=== PATIENT | male | born 1945 | race Caucasian/White ===

== ENCOUNTER 2016-10-27 16:00 | Emergency (ER) | payer OTHER ==
[~2016-10-27] VITALS: Ht 188 cm; Wt 100.0 kg
[2016-10-27 16:02] VITALS: BP 169/85; PULSE 65; RESP 17; TEMP 97.6; O2SAT 98
[2016-10-27 16:52] LABS: BLOOD, URINE NEG (NEG); CALCIUM OXALATE CRYSTALS,URINE FEW /hpf; COMMENT (UR) CULT NOT INDICATED; CULTURE IF INDICATED CULT NOT INDICATED; GLUCOSE,URINE NEG (NEG); KETONE, URINE TRACE mg/dL (NEG); MUCUS URINE FEW /lpf (OCC); NITRITE,URINE NEG (NEG); PH, URINE 5.5 (5.0-8.5); URINE COLOR DARK-YELLOW (YELLW/STRAW)
--- NOTE | 2016-10-27 18:21 | PD ---
HPI Chief Complaint: Complaint Time Seen by Provider: 18:19 Travel History International Travel<30 days: No Contact w/Intl Traveler<30days: No Traveled to known affect area: No History of Present Illness HPI 70-year-old male with no significant medical history presents to the emergency department for evaluation right flank pain radiating into his testicles. Patient states he feels as though his testicles are tighter than usual. He has had kidney stones in the past and states this feeling is similar. Intermittent sharp, and difficult to get comfortable. He said his urine was slow to flow this morning, but he has had normal voids throughout the day. No fever or chills. No chest tightness. No nausea or vomiting. No Other symptoms to report. [facility] Past Medical History Medical History: Denies Significant Hx Social History Alcohol Use: No Tobacco Use: No Substance Use: No Allergies-Medications (Allergen,Severity, Reaction): Coded Allergies: codeine (Verified Allergy, Intermediate, RASH, 10/27/16) Reported Meds & Prescriptions Reported Meds & Active Scripts Active No Active Prescriptions or Reported Medications Review of Systems Except as stated in HPI: all other systems reviewed are Neg Physical Exam Narrative GENERAL: Well-nourished male patient, lying in position on the bed, in no acute distress. SKIN: Focused skin assessment warm/dry. HEAD: Atraumatic. Normocephalic. EYES: Pupils equal and round. No scleral icterus. No injection or drainage. ENT: No nasal bleeding or discharge. Mucous membranes pink and moist. NECK: Trachea midline. No JVD. CARDIOVASCULAR: Regular rate and rhythm. No murmur appreciated. RESPIRATORY: No accessory muscle use. Clear to auscultation. Breath sounds equal bilaterally. GASTROINTESTINAL: Abdomen soft, non-tender, nondistended. Hepatic and splenic margins not palpable. MUSCULOSKELETAL: No obvious deformities. No clubbing. No cyanosis. No edema. Right CVA tenderness. NEUROLOGICAL: Awake and alert. No obvious cranial nerve deficits. Motor grossly within normal limits. Normal speech. PSYCHIATRIC: Appropriate mood and affect; insight and judgment normal. Data Data Last Documented VS Vital Signs Date Time Temp Pulse Resp B/P (MAP) Pulse Ox O2 Delivery O2 Flow Rate FiO2 10/27/16 16:02 97.6 65 17 169/85 (113) 98 Orders Orders Urinalysis - C+S If Indicated (10/27/16 16:17) Iv Access Insert/Monitor (10/27/16 18:20) Ct Abd/Pel W/O Iv Contrast (10/27/16 ) Sodium Chlor 0.9% 1000 Ml Inj (Ns 1000 M (10/27/16 18:30) Ketorolac Inj (Toradol Inj) (10/27/16 18:30) Labs Laboratory Tests Test 10/27/16 14:25 Urine Color DARK-YELLOW Urine Turbidity CLEAR Urine pH 5.5 Urine Specific [place] 1.028 Urine Protein TRACE mg/dL Urine Glucose (UA) NEG mg/dL Urine Ketones TRACE mg/dL Urine Occult Blood NEG Urine Nitrite NEG Urine Bilirubin NEG Urine Urobilinogen LESS THAN 2.0 MG/DL Urine Leukocyte Esterase NEG Urine RBC 23 /hpf Urine WBC 1 /hpf Urine Calcium Oxalate Crystals FEW /hpf Urine Mucus FEW /lpf Microscopic Urinalysis Comment CULT NOT INDICATED MDM Medical Decision Making Medical Screen Exam Complete: Yes Emergency Medical Condition: Yes Medical Record Reviewed: Yes Differential Diagnosis UTI versus renal calculi versus renal colic versus muscle strain versus visceral pain Narrative Course 70-year-old male with history of renal calculi, presents to emergency department for evaluation of symptoms consistent with those in the past but he did have a kidney stone. Patient appears without distress. Vital signs are stable. Urinalysis is complete Laboratory Tests Test 10/27/16 14:25 Urine Color DARK-YELLOW Urine Turbidity CLEAR Urine pH 5.5 Urine Specific [place] 1.028 Urine Protein TRACE mg/dL Urine Glucose (UA) NEG mg/dL Urine Ketones TRACE mg/dL Urine Occult Blood NEG Urine Nitrite NEG Urine Bilirubin NEG Urine Urobilinogen LESS THAN 2.0 MG/DL Urine Leukocyte Esterase NEG Urine RBC 23 /hpf Urine WBC 1 /hpf Urine Calcium Oxalate Crystals FEW /hpf Urine Mucus FEW /lpf Microscopic Urinalysis Comment CULT NOT INDICATED CT of the abdomen and pelvis is ordered without contrast. 2014 patient is now being taken to CT at the have been running behind. Will await results. Patient remains comfortable. 2100 see to results 6 x 6 x 7 mm right UVJ stone with moderate obstructive uropathy. The stone is visible on the initial reshipping clerk radiograph. I discussed the patient my attending physician. Patient will be provided Flomax and pain control outpatient. He is advised to follow-up with urology and screen his urine. Patient agrees to return immediately with any acute worsening of symptoms. Diagnosis Primary Impression: Kidney stone on right side Referrals: Primary Care Physician Urologist Patient Instructions: General Instructions, Kidney Stones (ED) Additional Instructions: Maintain adequate oral hydration Follow-up with a primary care provider Seek urology evaluation Return immediately to the emergency department with any acute worsening of symptoms Med/Other Pt SpecificInfo: Prescription(s) given Scripts Tamsulosin (Flomax) 0.4 Mg Cap 0.4 MG PO HS for Manage Prostate Problems, #5 CAP 0 Refills Prov: Rajni Ku 10/27/16 Ibuprofen (Ibuprofen) 600 Mg Tab 600 MG PO Q8HR Y for PAIN, #30 TAB 0 Refills Prov: Rajni Ku 10/27/16 Hydrocodone-Acetaminophen (Lortab) 5-325 Mg Tab 1 TAB PO Q6H Y for PAIN GREATER THAN 6, #12 TAB 0 Refills Prov: Rajni Ku 10/27/16 Disposition: 01 DISCHARGE HOME Condition: Stable Rajni Ku Oct 27, 2016 18:21
[2016-10-27] MEDS ORDERED: KETOROLAC TROMETHAMINE 30 MG/ML (IVP) VIAL IV PUSH ONE (18:30)
[2016-10-27] MEDS ORDERED: SODIUM CHLOR 0.9% 1000 ML INJ 1,000 ML IV ONE (18:30)
--- NOTE | 2016-10-27 20:55 | RADRPT ---
EXAM DATE/TIME: 10/27/2016 20:20 [facility] COMPARISON: No previous studies available for comparison. INDICATIONS : Right flank pain with dysuria and nausea. Evaluate for calculi. ORAL CONTRAST: No oral contrast ingested. RADIATION DOSE: 8.53 CTDIvol (mGy) MEDICAL HISTORY : Renal calculi. SURGICAL HISTORY : None. ENCOUNTER: Initial ACUITY: 2 days PAIN SCALE: 9/10 LOCATION: Right flank TECHNIQUE: Volumetric scanning of the abdomen and pelvis was performed. Using automated exposure control and ad justment of the mA and/or kV according to patient size, radiation dose was kept as low as reasonably achievable to obtain optimal diagnostic quality images. DICOM format image data is available electro nically for review and comparison. FINDINGS: LOWER LUNGS: The visualized lower lungs are clear. LIVER: Homogeneous density without lesion. There is no dilation of the biliary tree. No calcified gallston es. SPLEEN: Normal size without lesion. PANCREAS: Within normal limits. KIDNEYS: 6 x 6 x 7 mm stone seen of the right ureterovesical junction and causing moderate hydronephrosis and hydroureter. Right kidney is swollen and there is perinephric edema. No stone or obstruction on the l eft. ADRENAL GLANDS: Within normal limits. VASCULAR: There is no aortic aneurysm. BOWEL/MESENTERY: The stomach, small bowel, and colon demonstrate no acute abnormality. There is no free intraperitone al air or fluid. The appendix is well-visualized and normal. ABDOMINAL WALL: Within normal limits. RETROPERITONEUM: There is no lymphadenopathy. BLADDER: No wall thickening or mass. REPRODUCTIVE: Within normal limits. INGUINAL: There is no lymphadenopathy or hernia. MUSCULOSKELETAL: No acute bony abnormality demonstrated. CONCLUSION: 6 x 6 x 7 mm right UVJ stone with moderate obstructive uropathy. The stone is visible on the initial video game developer radiograph. Hugo Hancock MD on October 27, 2016 at 20:51 Board Certified Radiologist. This report was verified electronically.
[2016-10-27] MEDS ORDERED: TAMS5CAP PO (21:01)
[2016-10-27] MEDS ORDERED: IBUP-232 PO (21:01)
[2016-10-27] MEDS ORDERED: HYDR-3533 PO (21:01)
== END 2016-10-27 21:21 | disposition home or self-care (01) ==
LOC: NEPD 16:00
DX: N20.0 Calculus of kidney (principal); Z88.5 Allergy status to narcotic agent
CPT/HCPCS: 74176; 81001; 96360; 96372; 99284; J1885; J7030

== ENCOUNTER 2016-12-01 08:09 | Emergency (ER) | payer OTHER ==
[~2016-12-01] VITALS: Ht 188 cm; Wt 100.0 kg
[~2016-12-01 08:09] MED LIST: HYDR-3533 PO; IBUP-232 PO; TAMS5CAP PO
[2016-12-01 08:10] VITALS: BP 176/97; PULSE 90; RESP 20; TEMP 97.6; O2SAT 99
[2016-12-01 08:20] VITALS: BP 178/91; PULSE 79; RESP 16; TEMP 98.4; O2SAT 100
[2016-12-01] MEDS ORDERED: SODIUM CHLORIDE 0.9% FLUSH 10 ML FLUSH IVF PRN (08:30)
--- NOTE | 2016-12-01 08:36 | PD ---
HPI Chief Complaint: Respiratory Distress Time Seen by Provider: 08:27 Travel History International Travel<30 days: No Contact w/Intl Traveler<30days: No Traveled to known affect area: No History of Present Illness HPI 70-year-old male patient with history of no significant past medical issues, presents to the ER today for shortness of breath that started last night, states that he feels like he cannot get any air in, feels like there is something in his throat. He has been coughing but denies any significant phlegm production, fevers, or any other symptoms. He states that he was eating a sandwich last night but states that he had no choking, symptoms just started on its own. States that the last time he had a similar symptoms was some 10 years ago when he was eating a chicken sandwich. He however states that he was not choking. He is able to swallow, denies any nausea, vomiting, chest discomfort, or other symptoms. Modifying Factors: None Associated Signs & Symptoms: Shortness of breath Risk Factors: None PFSH Past Medical History Diminished Hearing: No Hypertension: Yes Social History Alcohol Use: No Tobacco Use: No Substance Use: No Allergies-Medications (Allergen,Severity, Reaction): Coded Allergies: codeine (Verified Allergy, Intermediate, RASH, 10/27/16) Reported Meds & Prescriptions Reported Meds & Active Scripts Active Flomax (Tamsulosin HCl) 0.4 Mg Cap 0.4 Mg PO HS Ibuprofen 600 Mg Tab 600 Mg PO Q8HR PRN Lortab (Hydrocodone-Acetaminophen) 5-325 Mg Tab 1 Tab PO Q6H PRN Review of Systems Except as stated in HPI: all other systems reviewed are Neg Physical Exam Narrative GENERAL: Well-developed elderly white male patient currently in mild respiratory distress SKIN: Focused skin assessment warm/dry. HEAD: Atraumatic. Normocephalic. EYES: Pupils equal and round. No scleral icterus. No injection or drainage. ENT: No nasal bleeding or discharge. Mucous membranes pink and moist. NECK: Trachea midline. No JVD. CARDIOVASCULAR: Regular rate and rhythm. No murmur appreciated. RESPIRATORY: Mild accessory muscle use. Clear to auscultation. Breath sounds equal bilaterally. GASTROINTESTINAL: Abdomen soft, non-tender, nondistended. Hepatic and splenic margins not palpable. MUSCULOSKELETAL: No obvious deformities. No clubbing. No cyanosis. No edema. NEUROLOGICAL: Awake and alert. No obvious cranial nerve deficits. Motor grossly within normal limits. Normal speech. PSYCHIATRIC: Appropriate mood and affect; insight and judgment normal. Data Data Last Documented VS Vital Signs Date Time Temp Pulse Resp B/P (MAP) Pulse Ox O2 Delivery O2 Flow Rate FiO2 12/01/16 08:24 84 16 100 Room Air 12/01/16 08:20 98.4 178/91 (120) Orders Orders Complete Blood Count With Diff (12/01/16 08:27) Comprehensive Metabolic Panel (12/01/16 08:27) B-Type Natriuretic Peptide (12/01/16 08:27) D-Dimer (12/01/16 08:27) Act Partial Throm Time (Ptt) (12/01/16 08:27) Prothrombin Time / Inr (Pt) (12/01/16 08:27) Ckmb (Isoenzyme) Profile (12/01/16 08:27) Troponin I (12/01/16 08:27) Iv Access Insert/Monitor (12/01/16 08:27) Electrocardiogram (12/01/16 08:27) Ecg Monitoring (12/01/16 08:27) Oximetry (12/01/16 08:27) Oxygen Administration (12/01/16 08:27) Chest, Single Ap (12/01/16 08:27) Sodium Chloride 0.9% Flush (Ns Flush) (12/01/16 08:30) Soft Tissue Neck (12/01/16 ) Labs Laboratory Tests Test 12/01/16 08:54 White Blood Count 7.2 TH/MM3 Red Blood Count 5.49 MIL/MM3 Hemoglobin 16.6 GM/DL Hematocrit 47.7 % Mean Corpuscular Volume 87.0 FL Mean Corpuscular Hemoglobin 30.2 PG Mean Corpuscular Hemoglobin Concent 34.7 % Red Cell Distribution Width 13.6 % Platelet Count 210 TH/MM3 Mean Platelet Volume 8.0 FL Neutrophils (%) (Auto) 43.7 % Lymphocytes (%) (Auto) 42.8 % Monocytes (%) (Auto) 9.5 % Eosinophils (%) (Auto) 3.2 % Basophils (%) (Auto) 0.8 % Neutrophils # (Auto) 3.1 TH/MM3 Lymphocytes # (Auto) 3.1 TH/MM3 Monocytes # (Auto) 0.7 TH/MM3 Eosinophils # (Auto) 0.2 TH/MM3 Basophils # (Auto) 0.1 TH/MM3 CBC Comment DIFF FINAL Differential Comment Prothrombin Time 11.4 SEC Prothromb Time International Ratio 1.0 RATIO Activated Partial Thromboplast Time 27.9 SEC D-Dimer Quantitative (PE/DVT) 0.39 MG/L FEU Blood Urea Nitrogen 12 MG/DL Creatinine 1.20 MG/DL Random Glucose 125 MG/DL Total Protein 8.0 GM/DL Albumin 4.4 GM/DL Calcium Level 9.9 MG/DL Alkaline Phosphatase 70 U/L Aspartate Amino Transf (AST/SGOT) 20 U/L Alanine Aminotransferase (ALT/SGPT) 27 U/L Total Bilirubin 1.0 MG/DL Sodium Level 139 MEQ/L Potassium Level 3.9 MEQ/L Chloride Level 105 MEQ/L Carbon Dioxide Level 23.7 MEQ/L Anion Gap 10 MEQ/L Estimat Glomerular Filtration Rate 60 ML/MIN Total Creatine Kinase 92 U/L Troponin I LESS THAN 0.02 NG/ML B-Type Natriuretic Peptide LESS THAN 2 PG/ML MDM Medical Decision Making Medical Screen Exam Complete: Yes Emergency Medical Condition: Yes Medical Record Reviewed: Yes Interpretation(s) EKG shows NSR, no ST elevation or depression, and no arrhythmias. No significant T-wave inversions. Laboratory Tests Test 12/01/16 08:54 Monocytes (%) (Auto) 9.5 % (0.0-8.0) Random Glucose 125 MG/DL (74-106) Estimat Glomerular Filtration Rate 60 ML/MIN (>89) Troponin I LESS THAN 0.02 NG/ML Last 24 hours Impressions Chest X-Ray 12/01/16 0827 Signed Impressions: Service Date/Time: Thursday, December 01, 2016 09:30 - CONCLUSION: No acute disease. Hung Astorga Jr., MD Soft Tissue Neck X-Ray 12/01/16 0000 Signed Impressions: Service Date/Time: Thursday, December 01, 2016 09:31 - CONCLUSION: No acute disease. Hung Astorga Jr., MD Differential Diagnosis Shortness of breath: Pneumonia versus bronchitis versus dysrhythmias versus pneumothorax versus aspirated foreign body Narrative Course Vital signs are stable in the ER. EKG did not show dysrhythmias. Chest x-ray was unremarkable. His saturations are 100% in the ER. He was observed for several hours and symptoms resolved on their own. D-dimer is negative. BNP is negative. At this point, I do not see any other signs of obvious acute processes. Patient states that he got himself anxious as well because he felt like he was having difficulty catching air. However, he feels fine taking a deep breath on reevaluation at 10:45 AM. He states it just settle down on its own. He is not sure whether it was because of this and which she was eating, that may have been a different type of wheat bread, but the patient states he's had a wheat bread before without issues. I do not see any signs of angioedema or airway compromise. Patient has had wheat bread in the past and this does not appear to be a likely cause. Patient had no rashes or urticaria, case does not seem typical of an allergic reaction. At this point, it is unclear what is causing symptoms although anxiety could be a component. I have talked to the patient regarding trying some steroids and Benadryl for allergic reaction that the patient states that he thinks is okay, is declining at this point. My plan would be to release the patient with follow-up to primary care physician. Return for any worsening in symptoms as necessary. The plan was discussed with him and he states understanding. Diagnosis Primary Impression: Shortness of breath Disposition: 01 DISCHARGE HOME Condition: Stable Leila Ashraf MD Dec 01, 2016 08:36
[2016-12-01 09:16] LABS: AUTOMATED NEUTROPHIL # 3.1 TH/MM3 (1.8-7.7); BASOPHIL # 0.1 TH/MM3 (0-0.2); BASOPHIL % 0.8 % (0.0-2.0); EOSINOPHIL # 0.2 TH/MM3 (0-0.4); EOSINOPHIL % 3.2 % (0.0-4.0); HEMATOCRIT 47.7 % (39.0-51.0); HEMO FLAGS DIFF FINAL; LYMPH % 42.8 % (9.0-44.0); LYMPHOCYTE # 3.1 TH/MM3 (1.0-4.8); MEAN CORPUSCULAR HEMOGLOBIN 30.2 PG (27.0-34.0); MEAN CORPUSCULAR HGB CONC 34.7 % (32.0-36.0); MONO % 9.5 % (0.0-8.0); NEUT % 43.7 % (16.0-70.0); PLATELET COUNT 210 TH/MM3 (150-450); RED BLOOD COUNT 5.49 MIL/MM3 (4.50-5.90); RED CELL DISTRIBUTION WIDTH 13.6 % (11.6-17.2); WHITE BLOOD COUNT 7.2 TH/MM3 (4.0-11.0)
[2016-12-01 09:28] LABS: APTT (PATIENT) 27.9 SEC (24.3-30.1); PROTHROMBIN TIME - PATIENT 11.4 SEC (9.8-11.6)
--- NOTE | 2016-12-01 09:34 | RADRPT ---
EXAM DATE/TIME: 12/01/2016 09:30 [facility] COMPARISON: No previous studies available for comparison. INDICATIONS : Shortness of breath. MEDICAL HISTORY : Renal calculi. SURGICAL HISTORY : None. ENCOUNTER: Initial ACUITY: 1 day PAIN SCORE: 0/10 LOCATION: Bilateral chest FINDINGS: A single view of the chest demonstrates the lungs to be symmetrically aerated without evidence of mas s, infiltrate or effusion. The cardiomediastinal contours are unremarkable. Advanced osteoarthritis involving the shoulders bilaterally. Degenerative changes involving the thoracic spine. CONCLUSION: No acute disease. Hung Astorga Jr., MD on December 01, 2016 at 9:32 Board Certified Radiologist. This report was verified electronically.
--- NOTE | 2016-12-01 09:35 | RADRPT ---
EXAM DATE/TIME: 12/01/2016 09:31 [facility] COMPARISON: No previous studies available for comparison. INDICATIONS : Shortness of breath. MEDICAL HISTORY : Renal calculi. SURGICAL HISTORY : None. ENCOUNTER: Initial ACUITY: 1 day PAIN SCORE: 0/10 LOCATION: soft tissue neck. FINDINGS: Two view examination of the soft tissues of the neck demonstrates the hypopharyngeal airway to have a grossly normal configuration. The trachea is midline. No radiopaque foreign bodies are seen. A deg enerative cervical spine observed. CONCLUSION: No acute disease. Hung Astorga Jr., MD on December 01, 2016 at 9:33 Board Certified Radiologist. This report was verified electronically.
[2016-12-01 09:41] LABS: ALKALINE PHOSPHATASE 70 U/L (45-117); ALT (GPT) 27 U/L (12-78); ANION GAP 10 MEQ/L (5-15); AST (GOT) 20 U/L (15-37); BICARBONATE 23.7 MEQ/L (21.0-32.0); BLOOD UREA NITROGEN 12 MG/DL (7-18); CHLORIDE 105 MEQ/L (98-107); CREATINE KINASE 92 U/L (39-308); GLOMERULAR FILTRATION RATE 60 ML/MIN (>89); POTASSIUM 3.9 MEQ/L (3.5-5.1); SODIUM (NA) 139 MEQ/L (136-145)
--- NOTE | 2016-12-02 14:28 | EKG ---
Date Performed: 12/01/2016 Time Performed: 08:48:47 PTAGE: 70 years EKG: Sinus rhythm PROBABLE LATERAL MYOCARDIAL INFARCTION ABNORMAL ECG NO PREVIOUS TRACING DOCTOR: Tutu Gonzales Interpretating Date/Time 12/02/2016 14:21:11
== END 2016-12-01 11:20 | disposition home or self-care (01) ==
LOC: NEPC 08:09
DX: R06.02 Shortness of breath (principal); R05 Cough; R09.89 Other specified symptoms and signs involving the circulatory and respiratory systems; R94.31 Abnormal electrocardiogram [ECG] [EKG]; I10 Essential (primary) hypertension
CPT/HCPCS: 70360; 71010; 80053; 82550; 83880; 84484; 85025; 85379; 85610; 85730; 93005; 99285